=== PATIENT | male | born 1965 | race Caucasian/White ===

== ENCOUNTER 2018-08-16 22:52 | Emergency (ER) | payer OTHER ==
--- NOTE | 2018-08-16 23:38 | EKG REPORT ---
SEVERITY:- ABNORMAL ECG - SINUS TACHYCARDIA LEFT ANTERIOR FASCICULAR BLOCK BORDERLINE T ABNORMALITIES, ANTERIOR LEADS BORDERLINE PROLONGED QT INTERVAL : Confirmed by: Kassidy Concepcion 16-Aug-2018 23:37:40
[2018-08-17 00:04] LABS: ALANINE AMINOTRANSFERASE 51 U/L (21-72); ALBUMIN 4.3 g/dL (3.5-5.0); ALKALINE PHOSPHATASE 115 U/L (38-126); ANION GAP 16 (5-19); ASPARTATE AMINO TRANSFERASE 202 U/L (17-59); BILIRUBIN,DIRECT 0.9 mg/dL (0.0-0.4); BILIRUBIN,TOTAL 1.9 mg/dL (0.2-1.3); BLOOD UREA NITROGEN 7 mg/dL (7-20); CALCIUM 9.2 mg/dL (8.4-10.2); CARBON DIOXIDE 22 mmol/L (22-30); CHLORIDE 96 mmol/L (98-107); CREATINE KINASE 61 U/L (55-170); GLUCOSE 119 mg/dL (75-110); POTASSIUM 3.6 mmol/L (3.6-5.0); SODIUM 133.5 mmol/L (137-145); TOTAL PROTEIN 9.1 g/dL (6.3-8.2)
[2018-08-17 00:07] LABS: ABSOLUTE LYMPHOCYTES (AUTO) 0.5 10^3/uL (0.5-4.7); ABSOLUTE MONOCYTES (AUTO) 0.5 10^3/uL (0.1-1.4); ABSOLUTE NEUT (AUTO) 6.5 10^3/uL (1.7-8.2); BASOPHILS % (AUTO) 0.3 % (0-2); EOSINOPHILS % (AUTO) 0.1 % (0-6); HEMATOCRIT 39.2 % (37.9-51.0); LYMPHOCYTES % (AUTO) 6.8 % (13-45); MEAN CORPUSCULAR HEMOGLOBIN 37.8 pg (27.0-33.4); MEAN CORPUSCULAR HGB CONC 35.7 g/dL (32.0-36.0); MEAN CORPUSCULAR VOLUME 106 fl (80-97); RED BLOOD COUNT 3.69 10^6/uL (4.35-5.55); RED CELL DISTRIBUTION WIDTH 14.1 % (11.5-14.0); SEGMENTED NEUTROPHILS % (AUTO) 85.8 % (42-78); TOTAL CELLS COUNTED % (AUTO) 100 %; WHITE BLOOD COUNT 7.6 10^3/uL (4.0-10.5)
[2018-08-17 00:14] LABS: CREATINE KINASE MB 0.49 ng/mL (<4.55)
[2018-08-17 00:15] LABS: TROPONIN I < 0.012 ng/mL
[2018-08-17 00:22] LABS: PLATELET COUNT 84 10^3/uL (150-450)
--- NOTE | 2018-08-17 00:31 | RADIOLOGY REPORT (SQ) ---
CLINICAL HISTORY: suspected triple a COMPARISON: None. TECHNIQUE: XR CHEST 2 VIEWS 08/16/2018 12:00 AM CDT FINDINGS: Cardiac silhouette is normal in size. Lungs are clear without consolidation, atelectasis, mass or edema. There is no pleural effusion. There is no pneumothorax. There are no acute osseous findings. IMPRESSION: Clear lungs.
[2018-08-17] MEDS ORDERED: NORMAL SALINE 1000 ML 1,000 ML IV ONE ×2 (01:00→03:14)
[2018-08-17] MEDS ORDERED: MORPHINE SULFATE 10 MG/ML INJ IV ONE (01:01)
[2018-08-17] MEDS ORDERED: ONDANSETRON HCL INJ/PF 4 MG/2 ML SDV IV ONE (01:01)
[2018-08-17 01:22] LABS: LIPASE 198.6 U/L (23-300)
[2018-08-17] MEDS ORDERED: ACETAMINOPHEN 325 MG TABLET PO ONE (01:30)
[2018-08-17] MEDS ORDERED: HYDROMORPHONE HCL INJ/PF 2 MG/ML AMPULE IV ONE (01:50)
--- NOTE | 2018-08-17 02:43 | RADIOLOGY REPORT (SQ) ---
CLINICAL HISTORY: chest pain CREAT 0.54 COMPARISON: None. TECHNIQUE: CT CHEST ANGIOGRAPHY WITHOUT THEN WITH IV CONTRAST, CT ABDOMEN PELVIS WITHOUT THEN WITH IV CONTRAST on 08/17/2018 12:59 AM CDT. MIPS reconstructions were generated. This exam was performed according to our departmental dose-optimization program, which includes automated exposure control, adjustment of the mA and/or kV according to patient size and/or use of iterative reconstruction technique. FINDINGS: Vascular: Thoracic aorta is normal in course and caliber without aneurysm or dissection. Pulmonary arteries are adequately opacified without acute or chronic filling defects. Abdominal aorta is normal in course and caliber without aneurysm. Pelvic arteries are patent without aneurysm or occlusion. The heart is normal in size. There is no pericardial effusion. Intrathoracic lymph nodes are not enlarged. There is no pleural effusion, pleural thickening or pneumothorax. Central airways are patent. Lungs are clear with no consolidation, mass or interstitial lung disease. Abdomen: Liver is enlarged, fatty in attenuation and slightly heterogeneous. There is no biliary dilatation. Gallbladder is normal in appearance. Spleen is enlarged measuring 18.4 cm. The adrenal glands and kidneys are unremarkable. There is no free air. There is no retroperitoneal adenopathy. Pelvis: There is no bowel obstruction. Urinary bladder is unremarkable. There is small amount of free pelvic fluid. Appendix is normal. Skeleton: There are no acute osseous findings. No suspicious bony lesions. IMPRESSION: No aortic dissection or aneurysm. No pulmonary embolus. Heterogeneous appearance of the liver with splenomegaly. No acute inflammatory process.
[2018-08-17 03:28] LABS: APPEARANCE,URINE CLEAR; BILIRUBIN,URINE NEGATIVE (NEGATIVE); COLOR,URINE YELLOW; GLUCOSE, URINE NEGATIVE (NEGATIVE); KETONES,URINE TRACE mg/dL (NEGATIVE); LEUKOCYTE ESTERASE,URINE NEGATIVE (NEGATIVE); NITRITE,URINE NEGATIVE (NEGATIVE); PROTEIN,URINE NEGATIVE (NEGATIVE); URINE SPECIFIC GRAVITY 1.047
--- NOTE | 2018-08-17 03:32 | ER Document Report ---
ED General - General Chief Complaint: Shoulder Pain Stated Complaint: RIGHT SHOULDER PAIN Time Seen by Provider: 08/17/18 00:36 Mode of Arrival: Ambulatory Information source: Patient TRAVEL OUTSIDE OF THE [place] IN LAST 30 DAYS: No - HPI Onset: Just prior to arrival Onset/Duration: Sudden Quality of pain: Sharp Severity: Severe Pain Level: 5 Associated symptoms: Fever Exacerbated by: Denies Relieved by: Denies Similar symptoms previously: No Recently seen / treated by doctor: No Past Medical History - General Information source: Patient - Social History Smoking Status: Current Every Day Smoker Chew tobacco use (# tins/day): No Frequency of alcohol use: None Drug Abuse: None Family History: Other - Unknown Patient has suicidal ideation: No Patient has homicidal ideation: No Renal/ Medical History: Denies: Hx Peritoneal Dialysis Review of Systems - Review of Systems Constitutional: Fever EENT: No symptoms reported Cardiovascular: Chest pain - Right sided chest pain Respiratory: No symptoms reported Gastrointestinal: Abdominal pain Genitourinary: No symptoms reported Male Genitourinary: No symptoms reported Musculoskeletal: No symptoms reported Skin: No symptoms reported Hematologic/Lymphatic: No symptoms reported Neurological/Psychological: No symptoms reported -: Yes All other systems reviewed and negative Physical Exam - Vital signs Vitals: Temp Pulse Resp BP Pulse Ox 98.7 F 109 H 32 H 133/83 H 96 08/16/18 23:18 08/16/18 23:18 08/16/18 23:18 08/16/18 23:18 08/16/18 23:18 Interpretation: Normal - General General appearance: Appears well, Alert - HEENT Head: Normocephalic, Atraumatic Eyes: Normal Pupils: PERRL - Respiratory Respiratory status: No respiratory distress Chest status: Nontender Breath sounds: Normal Chest palpation: Normal - Cardiovascular Rhythm: Regular Heart sounds: Normal auscultation Murmur: No - Abdominal Inspection: Normal Distension: No distension Bowel sounds: Normal Tenderness: Tender, Other - Right flank tenderness to palpation. Organomegaly: No organomegaly - Back Back: Normal, Nontender - Extremities General upper extremity: Normal inspection, Nontender, Normal color, Normal ROM, Normal temperature General lower extremity: Normal inspection, Nontender, Normal color, Normal ROM, Normal temperature, Normal weight bearing. No: Norbert's sign - Neurological Neuro grossly intact: Yes Cognition: Normal Orientation: AAOx4 [place] Coma Scale Eye Opening: Spontaneous Jairo Coma Scale Verbal: Oriented Jairo Coma Scale Motor: Obeys Commands Jairo Coma Scale Total: 15 Speech: Normal Motor strength normal: LUE, RUE, LLE, RLE Sensory: Normal - Psychological Associated symptoms: Normal affect, Normal mood - Skin Skin Temperature: Warm Skin Moisture: Dry Skin Color: Normal Course - Vital Signs Vital signs: Temp Pulse Resp BP Pulse Ox 98.3 F 69 18 114/66 100 08/17/18 06:54 08/17/18 06:56 08/17/18 06:57 08/17/18 06:56 08/17/18 06:56 - Laboratory Result Diagrams: 08/16/18 23:26 08/16/18 23:26 Laboratory results interpreted by me: 08/16/18 08/16/18 08/16/18 23:26 23:26 23:40 RBC 3.69 L MCV 106 H MCH 37.8 H RDW 14.1 H Plt Count 84 L Seg Neutrophils % 85.8 H Lymphocytes % 6.8 L Sodium 133.5 L Chloride 96 L Glucose 119 H Lactic Acid 2.7 H Total Bilirubin 1.9 H Direct Bilirubin 0.9 H AST 202 H Creatine Kinase Total Protein 9.1 H Urine Ketones Urine Urobilinogen 08/17/18 08/17/18 03:15 03:45 RBC MCV MCH RDW Plt Count Seg Neutrophils % Lymphocytes % Sodium Chloride Glucose Lactic Acid Total Bilirubin Direct Bilirubin AST Creatine Kinase 43 L Total Protein Urine Ketones TRACE H Urine Urobilinogen 4.0 H - Diagnostic Test Radiology reviewed: Image reviewed, Reports reviewed - EKG Interpretation by [place] EKG shows normal: Sinus rhythm Rate: Tachycardia When compared to previous EKG there are: Previous EKG unavailable Additional EKG results interpreted by me: 08/17/18 04:[address] and T wave changes. No STEMI. - Consults raghav Time consulted: 04:00 Reason for consultation: 08/17/18 04:24 Dr Hugh Johnston was consulted for admission. He will see patient in the ED. Consulted provider: will come to ER - Transfer of Care Care transferred to following provider: Dr Joshua Rodriguez. Notes: 08/17/18 04:26 Patient is pending RUQ Uktrasound report and CPK result. Discharge - Discharge Clinical Impression: Atypical chest pain Abdominal pain Qualifiers: Abdominal location: right upper quadrant Qualified Code(s): R10.11 - Right upper quadrant pain Condition: Stable Disposition: HOME, SELF-CARE
--- NOTE | 2018-08-17 04:43 | RADIOLOGY REPORT (SQ) ---
EXAM DESCRIPTION: US ABDOMEN DOPPLER LIMITED COMPLETED DATE/TME: 08/17/2018 03:14 CLINICAL HISTORY: 53 years Male, RUQ abdominal pain Comparison:Aug 17 2018, CTA Chest LIMITATIONS: Bowel gas artifact. FINDINGS: Gallbladder sludge, negative sonographic Mullins's test, moderate hepatic steatosis, a 0.4-cm diameter common bile duct, no intrahepatic ductal dilation, hepatopetal patent flow of the portal vein, 11-cm right kidney, obscured pancreas, visualized vasculature/abdominal aorta, and no significant ascites appear otherwise unremarkable. IMPRESSION: No acute findings. Hepatic steatosis. Gallbladder sludge.
[2018-08-17 05:13] LABS: URINE AMPHETAMINES SCREEN NEGATIVE; URINE BARBITURATES SCREEN NEGATIVE; URINE BENZODIAZEPINES SCREEN NEGATIVE; URINE MARIJUANA (THC) SCREEN NEGATIVE; URINE PHENCYCLIDINE SCREEN NEGATIVE
[2018-08-17 05:14] LABS: URINE COCAINE SCREEN NEGATIVE
[2018-08-17 05:15] LABS: URINE METHADONE SCREEN NEGATIVE
--- NOTE | 2018-08-17 06:39 | H&P/Discharge Summary ---
Discharge Summary Discharge Date: 08/17/18 Resuscitation Status: Full Code - Discharge Diagnosis (1) Alcohol dependence Is this a current diagnosis for this admission?: Yes Summary: No history of alcohol withdrawal, discontinuation strongly advised, follow-up with gastroenterology and primary care (2) Chronic pain Is this a current diagnosis for this admission?: Yes Summary: Low-dose ibuprofen sparingly. Follow-up primary care (3) Splenomegaly Is this a current diagnosis for this admission?: Yes Summary: Secondary to #1 (4) Hepatosplenomegaly Is this a current diagnosis for this admission?: Yes Summary: Secondary to #1, (5) Macrocytosis Is this a current diagnosis for this admission?: Yes Summary: Secondary to #1, vitamin B complex daily, avoid alcohol (6) Flank pain Is this a current diagnosis for this admission?: Yes Summary: Secondary to #1 and splenomegaly with deep inspiration radiating to shoulder History of Present Illness Patient complains of: Right-sided abdominal pain History of Present Illness: ALEX BOSTON is a 53 year old male with a past medical history of GERD, hypertension, opiate dependent chronic orthopedic pain who was recently discontinued from narcotics by [place] primary care and is subsequently increased consumption of alcohol for relief of pain. He presents with an abrupt onset of right sided abdominal pain that radiates to the right shoulder with deep inspiration. Is prompted to seek evaluation emergency room where he is found to have acute alcohol intoxication, hepatosplenomegaly, macrocytosis and an otherwise unremarkable work-up including cardiac enzymes x2, CTA ruling out PE, CT abdomen. Patient's primary care provider recently advised alcohol cessation. Past Medical History Cardiac Medical History: Reports: Hypertension GI Medical History: Reports: Gastroesophageal Reflux Disease Social History Information Source: Patient, [facility] Records Smoking Status: Current Every Day Smoker Frequency of Alcohol Use: Heavy Drugs: None - Advance Directive Resuscitation Status: Full Code Family History Family History: Hypertension Parental Family History Reviewed: Yes Children Family History Reviewed: Yes Sibling(s) Family History Reviewed.: Yes Review of Systems Constitutional: PRESENT: as per HPI, anorexia, fatigue. ABSENT: chills Eyes: ABSENT: visual disturbances Ears: ABSENT: hearing changes Cardiovascular: ABSENT: chest pain, dyspnea on exertion, edema, orthropnea, palpitations Respiratory: ABSENT: cough, hemoptysis Gastrointestinal: PRESENT: as per HPI, abdominal pain, heartburn. ABSENT: coffee ground emesis, constipation, diarrhea, melena, nausea, vomiting Genitourinary: ABSENT: dysuria, hematuria Musculoskeletal: ABSENT: joint swelling Integumentary: ABSENT: rash, wounds Neurological: ABSENT: abnormal gait, abnormal speech, confusion, dizziness, focal weakness, syncope Psychiatric: ABSENT: anxiety, depression, homidical ideation, suicidal ideation Endocrine: ABSENT: cold intolerance, heat intolerance, polydipsia, polyuria Hematologic/Lymphatic: ABSENT: easy bleeding, easy bruising Physical Exam Vital Signs: Temp Pulse Resp BP Pulse Ox 98.8 F 109 H 28 H 122/80 98 08/17/18 03:53 08/16/18 23:18 08/17/18 05:00 08/17/18 04:58 08/17/18 05:00 Intake & Output 08/15/18 08/16/18 08/17/18 11:59 11:59 11:59 Intake Total 1999 Balance 1999 Weight 88.1 kg General appearance: PRESENT: cooperative, mild distress, well-developed, well- nourished. ABSENT: disheveled Head exam: PRESENT: atraumatic, normocephalic Eye exam: PRESENT: conjunctiva pink, EOMI, PERRLA. ABSENT: scleral icterus Ear exam: PRESENT: normal external ear exam Mouth exam: PRESENT: moist, tongue midline Neck exam: PRESENT: carotid bruit Respiratory exam: PRESENT: clear to auscultation reynold. ABSENT: rales, rhonchi, wheezes Cardiovascular exam: PRESENT: RRR. ABSENT: diastolic murmur, rubs, systolic murmur Pulses: PRESENT: normal dorsalis pedis pul Vascular exam: PRESENT: normal capillary refill GI/Abdominal exam: PRESENT: diminished bowel sounds, hypoactive bowel sounds, soft, tenderness - Pain on palpitation of the spleen. ABSENT: guarding Rectal exam: PRESENT: deferred Extremities exam: PRESENT: full ROM. ABSENT: calf tenderness, clubbing, pedal edema Neurological exam: PRESENT: alert, awake, oriented to person, oriented to place, oriented to time, oriented to situation, CN II-XII grossly intact. ABSENT: motor sensory deficit Psychiatric exam: PRESENT: appropriate affect, normal mood. ABSENT: homicidal ideation, suicidal ideation Skin exam: PRESENT: dry, intact, warm. ABSENT: cyanosis, rash Results Laboratory Results: 08/16/18 23:26 08/16/18 23:26 08/16/18 08/16/18 08/16/18 23:26 23:26 23:26 WBC 7.6 RBC 3.69 L Hgb 14.0 Hct 39.2 MCV 106 H MCH 37.8 H MCHC 35.7 RDW 14.1 H Plt Count 84 L Seg Neutrophils % 85.8 H Lymphocytes % 6.8 L Monocytes % 7.0 Eosinophils % 0.1 Basophils % 0.3 Absolute Neutrophils 6.5 Absolute Lymphocytes 0.5 Absolute Monocytes 0.5 Absolute Eosinophils 0.0 Absolute Basophils 0.0 Sodium 133.5 L Potassium 3.6 Chloride 96 L Carbon Dioxide 22 Anion Gap 16 BUN 7 Creatinine 0.73 Est GFR ( Amer) > 60 Est GFR (Non-Af Amer) > 60 Glucose 119 H Lactic Acid Calcium 9.2 Total Bilirubin 1.9 H AST 202 H ALT 51 Alkaline Phosphatase 115 Total Protein 9.1 H Albumin 4.3 Lipase 198.6 Vitamin B12 Urine Color Urine Appearance Urine pH Ur Specific Mason Urine Protein Urine Glucose (UA) Urine Ketones Urine Blood Urine Nitrite Ur Leukocyte Esterase Urine WBC (Auto) Urine RBC (Auto) 08/16/18 08/17/18 08/17/18 23:40 03:15 03:45 WBC RBC Hgb Hct MCV MCH MCHC RDW Plt Count Seg Neutrophils % Lymphocytes % Monocytes % Eosinophils % Basophils % Absolute Neutrophils Absolute Lymphocytes Absolute Monocytes Absolute Eosinophils Absolute Basophils Sodium Potassium Chloride Carbon Dioxide Anion Gap BUN Creatinine Est GFR ( Amer) Est GFR (Non-Af Amer) Glucose Lactic Acid 2.7 H Calcium Total Bilirubin AST ALT Alkaline Phosphatase Total Protein Albumin Lipase Vitamin B12 396.0 Urine Color YELLOW Urine Appearance CLEAR Urine pH 6.0 Ur Specific Mason 1.047 Urine Protein NEGATIVE Urine Glucose (UA) NEGATIVE Urine Ketones TRACE H Urine Blood NEGATIVE Urine Nitrite NEGATIVE Ur Leukocyte Esterase NEGATIVE Urine WBC (Auto) 1 Urine RBC (Auto) 1 08/16/18 08/16/18 08/17/18 23:26 23:26 03:45 Creatine Kinase 61 CK-MB (CK-2) 0.49 Troponin I < 0.012 < 0.012 08/17/18 03:45 Creatine Kinase 43 L CK-MB (CK-2) Troponin I Impressions: Chest X-Ray 08/16/18 00:00 IMPRESSION: Clear lungs. Chest/Abdomen CTA 08/17/18 00:59 IMPRESSION: No aortic dissection or aneurysm. No pulmonary embolus. Heterogeneous appearance of the liver with splenomegaly. No acute inflammatory process. Abdomen/Pelvis CTA 08/17/18 01:00 IMPRESSION: No aortic dissection or aneurysm. No pulmonary embolus. Heterogeneous appearance of the liver with splenomegaly. No acute inflammatory process. Abdomen Ultrasound 08/17/18 03:14 IMPRESSION: No acute findings. Hepatic steatosis. Gallbladder sludge. Qualifiers - * PATIENT BEING DISCHARGED WITH ANY OF THE FOLLOWING DIAGNOSIS: No VTE patient discharged on overlapping Therapy?: No Stroke Pt being discharged on Anti-thrombolytic therapy?: No Reason(s) for not prescribing Anti-thrombolytic therapy:: Not indicated Stroke Pt being discharged on Anti-coagulation therapy?: No Reason(s) for not prescribing Anti-coagulation therapy:: Not indicated Stroke Pt being discharged on Statins?: No Reason(s) for not prescribing Statins therapy:: Not indicated OR Pt being discharged on Aspirin therapy?: No Reason(s) for not prescribing Aspirin therapy:: Not indicated OR Pt being discharged on Statins?: No Reason(s) for not prescribing Statin therapy:: Not indicated OR Pt discharged ACEI/ARBS?: No Reason(s) for not prescribing ACEI/ARBS:: Not indicated Assessment & Plan - Plan Summary Plan Summary: Hepatosplenomegaly, thrombocytopenia, macrocytosis, alcohol dependence without history of alcohol withdrawal. Plan to discontinue alcohol, vitamin B complex, avoid Tylenol, follow-up with primary care for chronic pain and CBC, GI for reevaluation of hepatosplenomegaly in 3 months
[2018-08-17 06:48] VITALS: BP 114/66
== END 2018-08-17 07:14 | disposition home or self-care (01) ==
LOC: ER 22:52
DX: R16.2 Hepatomegaly with splenomegaly, not elsewhere classified (principal); F10.229 Alcohol dependence with intoxication, unspecified; G89.29 Other chronic pain; D75.89 Other specified diseases of blood and blood-forming organs; R10.9 Unspecified abdominal pain; M25.511 Pain in right shoulder; R63.0 Anorexia; R53.83 Other fatigue; R12 Heartburn; R01.1 Cardiac murmur, unspecified; R07.9 Chest pain, unspecified; R10.11 Right upper quadrant pain; R07.89 Other chest pain; F17.200 Nicotine dependence, unspecified, uncomplicated; I10 Essential (primary) hypertension
CPT/HCPCS: 93005; 99284; 96361; 96374; 96375; 36415; 82553; 80307 ×2; 82607; 82550; 83605; 83690; 85025; 80053; 81001; 84484; 71046; 76705; 93976; 71275; 74174; 93010; J2270; J1170; J2405; J7030